=== PATIENT | female | born 1965 | race Caucasian/White ===

== ENCOUNTER 2016-10-25 12:12 | Outpatient (CLI) | payer OTHER ==
--- NOTE | 2016-10-25 16:21 | CT ---
CT ABDOMEN AND PELVIS WITHOUT IV CONTRAST: Date: 10-25-16 History: Left flank pain for two weeks. Comparison: CT angiogram abdomen/pelvis dated 08-24-15. FINDINGS: There is chronic diverticulosis with mild inflammatory changes seen in a left pericolonic location a djacent to the junction of the descending and sigmoid colon. Findings are likely related to colonic diverticulitis. No free intraperitoneal gas is seen. There is no fluid collection seen to suggest ab scess formation. The lung bases, spleen, pancreas, bilateral adrenal glands, kidneys, urinary bladder, uterus and adn exal structures have a grossly normal nonenhanced CT appearance. The liver demonstrates decreased attenuation related to fatty infiltration. Dense atherosclerotic vascular calcifications are again seen. There is a calcification seen in the right hemipelvis anteriorly which may represent a phlebolith. There is a small fat containing ventral abdominal hernia in an infraumbilical location, stable from prior exam. There are calcifications in the region of each renal hilum likely related to vascular calcifications . No definite renal calculus seen. There is no ureteral calculus or hydronephrosis. IMPRESSION: 1. Diverticulitis involving the distal descending colon. There is no fluid collection seen to sugges t an abscess. 2. Mild fatty infiltration of the liver. 3. Remainder of the findings are as described above. POS: [facility]
== END 2016-10-25 12:13 | disposition home or self-care (01) ==
LOC: MADCT 12:12
PROVIDERS: ATTEND Family Medicine
DX: R10.824 Left lower quadrant rebound abdominal tenderness (principal); K57.32 Diverticulitis of large intestine without perforation or abscess without bleeding; K76.0 Fatty (change of) liver, not elsewhere classified
CPT/HCPCS: 74176